=== PATIENT | female | born 1965 | race Caucasian/White ===

== ENCOUNTER 2022-07-21 07:00 | Outpatient (CLI) | payer BC ==
--- NOTE | 2022-07-21 19:18 | XRAY Report ---
PROCEDURE: Forearm RT INDICATIONS: RIGHT FOREARM CONTUSION TECHNIQUE: 2 views of the forearm were acquired. COMPARISON: None FINDINGS: Bones: No fractures or dislocations. No suspicious bony lesions. Soft tissues: No suspicious soft tissue calcifications or masses. IMPRESSION: No acute bony abnormality. Reviewed by: Bossman Parada MD on 07/21/2022 7:16 PM PDT Approved by: Bossman Parada MD on 07/21/2022 7:16 PM PDT Station ID: [id number]
== END 2022-07-21 23:59 | disposition home or self-care (01) ==
LOC: DI.S 07:00
PROVIDERS: ATTEND Emergency Medicine
DX: S50.11XA Contusion of right forearm, initial encounter (principal)

== ENCOUNTER 2022-12-07 07:00 | Outpatient (CLI) | payer BC | END 2022-12-07 23:59 | disposition home or self-care (01) | LOC: LAB.S 07:00 | PROVIDERS: ATTEND Physician Assistant | DX: R30.0 Dysuria (principal) | CPT/HCPCS: 87086 ==